=== PATIENT | female | born 1990 | race Caucasian/White ===

== ENCOUNTER 2018-11-07 16:00 | Emergency (ER) | payer BC ==
[2018-11-07] MEDS ORDERED: Lidocaine 4% Topical Sol 50 ML BOT ONE (16:22)
[2018-11-07] MEDS ORDERED: Bacitracin Zinc 1 Packet ONE (16:41)
--- NOTE | 2018-11-07 17:11 | RAD ---
TWO VIEWS RIGHT TIBIA/FIBULA: Comparison: None. History: Fell into a bench at [employer] just prior to arrival. FINDINGS: Two views of the right tibia/fibula shows no evidence of acute fracture dislocation. There may be a s mall pretibial laceration. No radiopaque foreign body is seen. IMPRESSION: No evidence of acute osseous abnormality. POS: [facility]
== END 2018-11-07 16:55 | disposition home or self-care (01) ==
LOC: SCSER 16:00
DX: S81.831A Puncture wound without foreign body, right lower leg, initial encounter (principal); W22.03XA Walked into furniture, initial encounter
CPT/HCPCS: J2001

== ENCOUNTER 2021-01-05 15:23 | Outpatient (CLI) | payer BC | END 2021-01-05 15:24 | disposition home or self-care (01) | LOC: BICRAD 15:23 | PROVIDERS: ATTEND Family Medicine | DX: M25.522 Pain in left elbow (principal); S52.122A Displaced fracture of head of left radius, initial encounter for closed fracture ==